=== PATIENT | male | born 2000 | race Caucasian/White ===

== ENCOUNTER 2018-01-23 04:07 | Emergency (ER) | payer OTHER ==
[2018-01-23 04:10] VITALS: BP 145/70; PULSE 109; RESP 16; TEMP 98.6; O2SAT 96
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
[2018-01-23] MEDS ORDERED: TETANUS/DIPHTHERIA TOXOID ADULT 0.5 ML VIAL IM ONE (05:15)
== END 2018-01-23 05:40 | disposition home or self-care (01) ==
LOC: NEPD 04:07
DX: S01.511A Laceration without foreign body of lip, initial encounter (principal); Y04.0XXA Assault by unarmed brawl or fight, initial encounter; Z23 Encounter for immunization
CPT/HCPCS: 12011; 90471; 90714